=== PATIENT | male | born 1985 | race Caucasian/White ===

== ENCOUNTER 2018-04-24 12:16 | Emergency (ER) | payer OTHER ==
[~2018-04-24] VITALS: Ht 182.9 cm; Wt 113.6 kg
[2018-04-24 12:31] VITALS: BP 137/98
[2018-04-24 13:20] LABS: INFLUENZA TYPE A NEGATIVE FOR TYPE A (NEGATIVE); INFLUENZA TYPE B NEGATIVE FOR TYPE B (NEGATIVE)
[2018-04-24] MEDS ORDERED: ACETAMINOPHEN 500 MG TABLET PO ONE (13:30)
== END 2018-04-24 14:11 | disposition home or self-care (01) ==
LOC: EMS 12:17
DX: J11.1 Influenza due to unidentified influenza virus with other respiratory manifestations (principal); F17.210 Nicotine dependence, cigarettes, uncomplicated
CPT/HCPCS: 87804